=== PATIENT | male | born 1955 | race Caucasian/White ===

== ENCOUNTER 2021-03-10 09:15 | Outpatient (CLI) | payer MEDICARE, SELFPAY ==
--- NOTE | 2021-03-10 08:30 | DI.RAD_ITS ---
EXAM: XR KNEE RT 3V AP,LAT,TITO CLINICAL HISTORY: R knee pain. TECHNIQUE: 2D digital imaging was performed. COMPARISON: No exams were available for comparison FINDINGS: There are marked degenerative changes of the right knee. The findings are characterized by joint spa ce narrowing subchondral sclerosis and periarticular spurring. The findings are most marked in the p atellofemoral joint. No acute fracture or dislocation is seen. The bones are normally mineralized. There is an enthesophyte at the superior patella. There is a joint effusion. Vascular calcificatio ns are present. IMPRESSION: 1. No acute abnormality. 2. Marked osteoarthritis of the right knee. DATA REPOSITORY: RADIATION DOSE DELIVERED:
== END 2021-03-10 09:16 | disposition home or self-care (01) ==
LOC: DIORS 09:16
PROVIDERS: PCP Family Medicine; Referring Provider Family Medicine; Visit Provider Student in an Organized Health Care Education/Training Program
DX: M25.561 Pain in right knee (principal); M17.11 Unilateral primary osteoarthritis, right knee
CPT/HCPCS: 20610; 73562; J1040

== ENCOUNTER 2021-04-06 15:39 | Outpatient (REF) | payer MEDICARE, SELFPAY ==
[2021-04-06 16:44] LABS: Creatinine,Urine 87.15 mg/dL; Sodium, Urine 51 mmol/L
[2021-04-06 16:51] LABS: Creatinine,24hr Ur 2.09 g/24hr (0.95-2.49); Total Volume 2400 ml
[2021-04-06 16:52] LABS: CLEAVED CELLS 122 mmol/24h (40-220); Total Volume 2400 ml
[2021-04-07 08:57] LABS: Calcium Urine 24 hr 216 mg/24hrs (100-300); Timed Urine Volume 2400 mL; Uric Acid Urine 24.2 mg/dL (See Note); Uric Acid Urine 24hr 581 mg/24hrs (250-750)
[2021-04-07 08:59] LABS: Phosphorus Urine 24hr 0.8 g/24hrs (0.4-1.3); Timed Urine Volume 2400 mL
[2021-04-07 09:01] LABS: Magnesium 24hr Urine 160.8 mg/24hrs (12.0-192.0); Magnesium Random Urine 6.7 mg/dL (See Note); Timed Urine Volume 2400 mL
[2021-04-07 17:57] LABS: Citrate Excretion, 24hr, U 847 mg/24 h; Urine Volume 2400 mL
[2021-04-08 14:18] LABS: Oxalate, U 0.48 mmol/24 h (0.11-0.46); Oxalate, U 42.2 mg/24 h (9.7 - 40.5); Urine Volume 2400 mL
== END 2021-04-06 15:40 | disposition home or self-care (01) ==
LOC: LBN 15:39
PROVIDERS: PCP Family Medicine; Visit Provider Urology
DX: N20.0 Calculus of kidney (principal)
CPT/HCPCS: 82507; 83735; 81050; 82340; 82570; 83945; 84105; 84300; 84560

== ENCOUNTER 2021-07-20 03:04 | Outpatient (CLI) | payer MEDICARE, SELFPAY ==
[2021-07-20 12:43] LABS: HCT 41.8 % (40.0-50.0); HGB 13.8 g/dL (13.5-17.5); MCH 31.3 pg (27.0-33.0); MCV 94.8 fL (80-95); MPV 8.8 fL (8.0-11.0); Platelet Count 332 10^3/uL (130-400); RBC 4.41 10^6/uL (4.36-5.78); RDW 13.2 % (11.8-14.1); RDW-SD 46.5 fL; WBC 12.86 10^3/uL (4.4-10.8)
[2021-07-20 13:02] LABS: PTT Activated 23.9 sec (21.0-27.5); Prothrombin Time 9.9 sec (9.3-11.0)
== END 2021-07-20 03:05 | disposition home or self-care (01) ==
PROVIDERS: PCP Family Medicine; Visit Provider Urology
DX: D69.8 Other specified hemorrhagic conditions (principal)
CPT/HCPCS: 36415; 85027; 85576; 85610; 85730

== ENCOUNTER 2021-07-25 10:21 | Outpatient (CLI) | payer MEDICARE, SELFPAY ==
[2021-07-25 16:22] LABS: Platelet Function Analysis 98 secs (94-193)
== END 2021-07-25 10:22 | disposition home or self-care (01) ==
LOC: LBO 10:22
PROVIDERS: PCP Family Medicine; Visit Provider Urology
CPT/HCPCS: 85027; 85576; 85610; 85730

== ENCOUNTER 2021-09-06 11:34 | Outpatient (CLI) | payer MEDICARE, SELFPAY ==
--- NOTE | 2021-09-06 10:45 | DI.RAD_ITS ---
Exam(s) XR KNEE RT 1V XR STANDING ALIGNMENT EXAM: XR STANDING ALIGNMENT and XR knee RT 1 V CLINICAL HISTORY: RIGHT KNEE OA. TECHNIQUE: 2D digital imaging was performed. Five views were obtained. COMPARISON: CR XR KNEE RT 3V AP,LAT,TITO from 03/10/2021 CR XR KNEE RT 1V from 09/06/2021 CR XR KNEE RT 1V from 09/06/2021 FINDINGS: In the left knee there are marked degenerative changes present. There is bone on bone in the medial femoral tibial joint space. Periarticular spurring is seen both medially and laterally. In the righ t knee there are marked degenerative changes present. There is marked narrowing of the medial femora l tibial joint and the patellofemoral joint with [id number]. Periarticular spurring is seen involv ing all 3 joint compartments. There is an enthesophyte at the superior right patella. No right join t effusion is seen. The right lower extremity measures 93.8 cm. The left lower extremity measures 9 3.4 cm. SOFT TISSUE: Atherosclerosis. IMPRESSION: Severe bilateral knee osteoarthritis. DATA REPOSITORY: RADIATION DOSE DELIVERED:
== END 2021-09-06 11:35 | disposition home or self-care (01) ==
LOC: DIORS 11:34
PROVIDERS: PCP Family Medicine; Referring Provider Family Medicine; Visit Provider Physician Assistant
DX: M17.11 Unilateral primary osteoarthritis, right knee (principal); Z01.818 Encounter for other preprocedural examination
CPT/HCPCS: 73560; 77073

== ENCOUNTER 2021-09-11 02:00 | Outpatient (CLI) | payer MEDICARE, SELFPAY ==
[2021-09-11 09:55] LABS: HCT 44.6 % (40.0-50.0); HGB 14.3 g/dL (13.5-17.5); MCHC 32.1 % (32.0-36.0); MCV 93.5 fL (80-95); MPV 9.5 fL (8.0-11.0); Platelet Count 325 10^3/uL (130-400); RBC 4.77 10^6/uL (4.36-5.78); RDW-SD 48.7 fL; WBC 8.61 10^3/uL (4.4-10.8)
[2021-09-11 12:36] LABS: Source Nasal/Nares
[2021-09-11 13:59] LABS: Anion Gap 11.9 mmol/L (3-11); BUN 16 mg/dL (7-18); CO2 25.1 mmol/L (21.0-32.0); CREATININE 1.2 mg/dL (0.70-1.30); Chloride 108 mmol/L (98-107); Glucose 140 mg/dL (74-106); Potassium 4.1 mmol/L (3.5-5.1); Sodium 145 mmol/L (136-145)
[2021-09-11 18:06] LABS: COVID-19 PCR Negative (Negative)
== END 2021-09-11 02:01 | disposition home or self-care (01) ==
LOC: LBO 02:00
PROVIDERS: PCP Family Medicine; Visit Provider Student in an Organized Health Care Education/Training Program
DX: M25.561 Pain in right knee (principal); M17.11 Unilateral primary osteoarthritis, right knee; Z20.822 Contact with and (suspected) exposure to COVID-19; Z01.818 Encounter for other preprocedural examination; Z01.812 Encounter for preprocedural laboratory examination
CPT/HCPCS: 36415; 80048; 85027; 87635

== ENCOUNTER 2021-09-12 05:53 | Day surgery (SDC) | payer MEDICARE, SELFPAY ==
--- NOTE | 2021-09-11 14:07 | W.ANESPRE ---
General Info Date of Service Date Performed: 09/12/21 Height: 5 ft 10 in Weight: 117.934 kg Body Mass Index (BMI): 37.3 Surgical Procedure: Operation Date: 09/12/21 07:40 Proposed Procedures Side Surgeon p Knee Total Arthroplasty Right Esau Dong MD Meds Allergies and Home Medications Allergies Allergy/AdvReac Type Severity Reaction Status Date / Time Penicillins Allergy Verified 09/12/21 06:09 amoxicillin AdvReac Verified 09/12/21 06:09 Home Medication Medication Instructions Recorded amlodipine 10 mg tablet 10 mg PO DAILY 03/07/21 ascorbic acid (vitamin C) 1,000 mg 1 g PO DAILY tab 03/07/21 tablet aspirin 81 mg tablet,delayed 81 mg PO DAILY 03/07/21 release lisinopril 40 mg tablet 40 mg PO DAILY 03/07/21 metoprolol tartrate 25 mg tablet 12.5 mg PO BID 03/07/21 omega 3-pbo-pkk-fish oil 1,200 mg 1 cap PO DAILY 03/07/21 (144 mg-216 mg) capsule alfuzosin 10 mg tablet,extended 10 mg PO HS 09/06/21 release 24 hr diphenhydramine HCl 25 mg capsule 25 mg PO QHS 09/06/21 finasteride 5 mg tablet 5 mg PO DAILY 09/06/21 Current Visit Medications: Current Medications Generic Name Dose Route Start Last Admin Trade Name Freq PRN Reason Stop Dose Admin Acetaminophen 1,000 mg 09/12/21 06:00 Acetaminophen 500 Mg Tab PO 09/12/21 23:59 PREOP NEGRITA Celecoxib 400 mg 09/12/21 06:00 Celecoxib 200 Mg Cap PO 09/12/21 23:59 PREOP NEGRITA Gabapentin 300 mg 09/12/21 06:00 Gabapentin 300 Mg Cap PO 09/12/21 23:59 PREOP NEGRITA Tranexamic Acid 1,000 mg/ 60 mls @ 360 mls/hr 09/12/21 06:00 Sodium Chloride IVPB 09/12/21 23:59 PREOP NGERITA Tranexamic Acid 1,000 mg/ 60 mls @ 360 mls/hr 09/12/21 06:00 Sodium Chloride IVPB 09/12/21 23:59 DIRECTED NEGRITA Ringer's Solution 1,000 mls @ 80 mls/hr 09/12/21 06:00 IV 10/11/21 23:59 INFUSION NEGRITA Cefazolin Sodium 3,000 mg/ 100 mls @ 200 mls/hr 09/12/21 06:00 Sodium Chloride IVPB 09/12/21 23:59 PREOP NEGRITA IV Miscellaneous Supplies 1 each 09/12/21 06:00 Iv Access IV 10/11/21 23:59 DIRECTED NEGRITA Sodium Chloride 0 ml 09/12/21 06:00 Normal Saline Flush 10 Ml Syr IV 10/11/21 23:59 PRN PRN Sodium Chloride 0 ml 09/12/21 06:00 Normal Saline 10 Ml Vial IJ 10/11/21 23:59 DIRECTED PRN Sterile Water 0 ml 09/12/21 06:00 Water,Injection,Sterile 10 Ml Vial IJ 10/11/21 23:59 DIRECTED PRN PFSH Active Problems Active Problems: Problem Status Onset Code Primary osteoarthritis of right knee M17.11 BPH loc w urin obs/LUTS N40.1 HELENA (obstructive sleep apnea) G47.33 Enlarged prostate N40.0 Hypertension I10 Medical History Medical History BPH loc w urin obs/LUTS Enlarged prostate Hypertension HELENA (obstructive sleep apnea) PONV (postoperative nausea and vomiting) pt. states he does well with a scopolamie patch Surgical History Surgical History History of exploratory laparotomy Hydrocele Rupture of right distal biceps tendon Status post arthroscopy of left knee Status post left inguinal hernia repair Tobacco Smoking/Tobacco Use Status: Former Tobacco Use Alcohol Alcohol Intake: former Year quit: 1991 Substance Use Substance use: Never Substance use type: does not use Vital Signs and Lab Results Vital Signs Most Recent Vital Signs in EMR: Temp Pulse Resp BP Pulse Ox 36.8 C 66 16 144/77 H 97 09/12/21 06:13 09/12/21 06:13 09/12/21 06:13 09/12/21 06:13 09/12/21 06:13 Lab Results Blood Type / Crossmatch: No Data to Display Complete Blood Count: White Blood Count 8.61 10^3/uL (4.4-10.8) 09/11/21 09:32 09/11/21 Red Blood Count 4.77 10^6/uL (4.36-5.78) 09/11/21 09:32 09/11/21 Hemoglobin 14.3 g/dL (13.5-17.5) 09/11/21 09:32 09/11/21 Hematocrit 44.6 % (40.0-50.0) 09/11/21 09:32 09/11/21 Platelet Count 325 10^3/uL (130-400) 09/11/21 09:32 09/11/21 Complete Metabolic Panel: Sodium Level 145 mmol/L (136-145) 09/11/21 09:32 09/11/21 Potassium Level 4.1 mmol/L (3.5-5.1) 09/11/21 09:09/11/21 Chloride Level 108 mmol/L (98-107) H 09/11/21 09:32 09/11/21 Carbon Dioxide Level 25.1 mmol/L (21.0-32.0) 09/11/21 09:32 09/11/21 Blood Urea Nitrogen 16 mg/dL (7-18) 09/11/21 09:32 09/11/21 Creatinine 1.2 mg/dL (0.70-1.30) 09/11/21 09:32 09/11/21 Estimated GFR/1.73 m2 >= 60.00 (mL/min/1.73m2) 09/11/21 09:32 09/11/21 Calcium Level 9.0 mg/dL (8.5-10.1) 09/11/21 09:32 09/11/21 Glucose Level 140 mg/dL (74-106) H 09/11/21 09:32 09/11/21 Liver Function Panel: No Data to Display Coagulation Panel: No Data to Display Cardiac Panel: No Data to Display Arterial Blood Gas: No Data to Display Venous Blood Gas: No Data to Display Pancreas Panel: No Data to Display Thyroid Panel: No Data to Display Infectious Disease: Coronavirus (COVID-19)(PCR) Negative (Negative) 09/11/21 09:50 09/11/21 Coronavirus 2019 Source Nasal/Nares 09/11/21 09:50 09/11/21 Blood Cultures: No Data to Display Toxicology Panel: No Data to Display Anesthesia Assessment and Plan Anesthesia History Personal History: PONV Family History: No Family History of Anesthesia Complications Exercise Tolerance Exercise Tolerance: Metabolic Equivalents>4 Pertinent Negatives Pertinent Negatives: No Symptoms of GERD, No Major Cardiovascular Symptoms or Complaints, No Major Pulmonary Symptoms or Complaints and No History of CVA/TIA Cardiac & Pulmonary Exam Cardiac Exam: Normal S1/S2 Heart Sounds Pulmonary Exam: Clear Bilateral Breath Sounds Airway Exam Known Difficult Airway: No Mallampati Class: 3 Mouth Opening: Normal (> 3cm) Thyromental Distance: Greater than 3 cm Neck Range of Motion: Full ROM Neck Circumference: Thick Teeth Condition: Normal Dentition ASA Classification ASA Score: ASA 3 Emergency Case?: No NPO Status NPO Status: NPO Clears >2 hours, Solids >8 hours Anesthesia Plan Resuscitation Status: Full Code Anesthesia Technique: Spinal Anesthesia Airway Planned: Natural Airway Pain Management: Surgeon and patient request nerve block Monitors Used: Standard Monitors Preoperative Comments:: 65 yo male for right TKA. Sig PMHx: HTN (amlodipine, lisinopril, metoprolol), BPH (alfuzosin), right radial artery occlusion, PONV. Plan: spinal, ACB, +/-scopolamine.
[2021-09-12] VITALS (9 sets, daily range): BP systolic 107–144; BP diastolic 52–77; PULSE 50–66; RESP 15–16; TEMP 36.3–36.8; O2SAT 94–97; BMI 37.3
[2021-09-12] MEDS: Acetaminophen 500 MG TAB 1000 MG PO (06:40)
[2021-09-12] MEDS: Gabapentin 300 MG CAP PO (06:42)
[2021-09-12] MEDS: Celecoxib 200 MG CAP 400 MG PO (06:42)
[2021-09-12] MEDS: Lactated Ringers 1,000 ML 80 ML IV (06:50)
--- NOTE | 2021-09-12 07:02 | W.ANESNERVE ---
Nerve Block Single Injection Procedure Date and Time Date Performed: 09/12/21 Procedure Start: 07:15 Location Where Procedure Performed Procedure Location: PACU Reason Performed: Postoperative Analgesia Requesting Provider: Esau Dong Timeout Performed Timeout Performed: No Monitoring Used ECG, Blood Pressure and SpO2 Sterility Sterility: Hand Hygiene, Surgical Cap, Surgical Mask and Chlorhexidine Sedation Given During Procedure Sedation Given (Indicate Dose Given): Versed IV Dose:: 2 mg Patient Mental Status Patient Mental Status: Sedate with meaningful communication Nerve Block 1st Nerve Block: Laterality: Right Block Type: Adductor Canal Needle / Catheter Used: 100mm SonoPlex II Local Anesthetic Bolus (Indicate Dose Given): Lidocaine used for local infiltration of skin, Injected in 3-5ml increments after negative blood aspiration and Bupivacaine 0.375% Dose:: 10 ml Additives (Indicate Dose Given): None Ultrasound: Sterile probe cover and gel used Ultrasound Image Saved?: Yes Nerve Stimulator: Not Used Paresthesia: None Procedure Tolerated: No Complications Procedure Outcome: Successful Performed By: Jarrell Lazo Supervised By: Ed Sanches
--- NOTE | 2021-09-12 07:17 | W.PM.DSUDISC ---
Discharge Plan Disposition Patient Disposition: HOME Condition: Good Discharge Details Reason For Visit: Right Knee Arthritis Attending Provider: Esau Dong Primary Care Provider: Gagandeep Demarco Home Meds and New Rx's Prescriptions: New acetaminophen 500 mg tablet 1,000 mg PO Q8H PRN (Reason: pain) Qty: 90 RF: 3 celecoxib 200 mg capsule 200 mg PO BID PRN (Reason: pain) Qty: 60 RF: 1 docusate sodium [Colace] 100 mg capsule 100 mg PO BID PRNQty: 10 RF: 0 pantoprazole 40 mg tablet,delayed release (DR/EC) 40 mg PO DAILY Qty: 30 RF: 0 oxycodone 5 mg tablet 5 - 10 mg PO Q4H PRN (Reason: Pain, Severe) Qty: 18 RF: 0 Continued ascorbic acid (vitamin C) 1,000 mg tablet 1 g PO DAILY RF: 0 omega 6-uhv-vpq-fish oil [Fish Oil] 1,200 (144-216) mg capsule 1 cap PO DAILY RF: 0 amlodipine 10 mg tablet 10 mg PO DAILY RF: 0 lisinopril 40 mg tablet 40 mg PO DAILY RF: 0 metoprolol tartrate 25 mg tablet 12.5 mg PO BID RF: 0 finasteride 5 mg tablet 5 mg PO DAILY RF: 0 diphenhydramine HCl [Benadryl] 25 mg capsule 25 mg PO QHS RF: 0 alfuzosin 10 mg tablet extended release 24 hr 10 mg PO HS RF: 0 Changed aspirin [Adult Aspirin Regimen] 81 mg tablet,delayed release (DR/EC) 81 mg PO BID Qty: 60 RF: 0 Discharge Instructions Additional Instructions: Total Knee Discharge Instructions Activity: The most important activity is to walk. You should try to take short walks a few times a day. It is important that when resting you work on keeping the knee straight. Avoid putting a pillow behind the knee as this will encourage flexion. Work on range of motion exercises as provided by Physical Therapy. If you have the [employer] bike coming, this will be your primary tool for exercise after the knee replacement. You should use it and follow the directions for the knee. Utilize the other exercises sparingly based on your symptoms. - Start outpatient physical therapy around 2 weeks. - You should wear the MAO hose on both legs for 2 weeks. You may remove these at night. You may also use any compression sock in place of the MAO hose. If the MAO hose become too difficult to get on/off then you may discontinue them. - Utilize [employer] to review exercises, see videos on exercises and obtain basic information pertaining to your surgery and your recovery. Dressing: Remove the Spike wrap by 2 days after your surgery and put on the MAO stocking given to you from the hospital. Keep the surgical dressing (underneath the SPIKE wrap) in place for at least one week. After the first week it may be removed and replaced with light gauze and tape or nothing or you may leave it until your follow-up appointment. The wound and dressing may get wet after 3 days but avoid soaking the dressing or otherwise it will need to be changed. Many people prefer covering the dressing with cling wrap (saran wrap) to minimize it from getting soaked. If it gets wet, just pat dry. If it starts to peel off then it will need to be changed. Medications: - You should take Tylenol and anti-inflammatory Celebrex as your primary pain control medications. If the Celebrex is too expensive or not covered, please call the office for another alternative (Advil/Ibuprofen or Naproxen/Aleve) - You have been prescribed a stronger pain medication Oxycodone for breakthrough pain, take as needed as prescribed. - You have also been prescribed a stomach acid reduction agent Pantoprozole to help reduce stomach acid and reflux. - You will be taking Aspirin 81mg twice a day for DVT prevention unless instructed otherwise. - If you have constipation you should take Colace or Miralax (both [id number]). It takes most people 3-4 days to have a bowel movement. Follow-up: 2 weeks If you have any acute concerns or questions, please do not hesitate to contact the office at [phone]. You may contact Dr. Dong with any questions after hours through the hospital at [phone] or on his cell phone at [phone]. Referrals: Esau Dong MD [ [facility] STAFF PHYSICIAN] - Equipment/Supplies: Walker Activity:: Elevate Remove Dressings/Wound Care:: Do Not Remove Shower/Bathe:: 72 hours Diet:: As Tolerated Discharge Orders Discharge Orders: Discharge Order (Routine); Ordered 09/12/21 Ordered By: Esau Dong DS: Diagnosis Discharge Diagnosis (1) Primary osteoarthritis of right knee: Status: Chronic
[2021-09-12] MEDS: ceFAZolin 3,000 MG in Normal Saline 100 ML 200 MG IVPB (07:58)
[2021-09-12] MEDS: Bupivacaine 0.25% Pres-Free 30 ML VIAL (08:29)
[2021-09-12] MEDS: Ketorolac 30 MG/ML VIAL (08:29)
[2021-09-12] MEDS: Normal Saline 20 ML VIAL (08:30)
--- NOTE | 2021-09-12 09:28 | W.PM.OP ---
Date of service: 09/12/21 Time of Service: 09:28 Operative Note Operative Note DATE OF PROCEDURE: 09/12/21 PRE-OP DIAGNOSIS: Right Knee Osteoarthritis POST-OP DIAGNOSIS: same PROCEDURE: Right Total Knee Replacement SURGEON: Esau Dong BRAND DEVELOPMENT MANAGER: Apoorva Burt ANESTHESIA TYPE: Spinal Refer to Anesthesia Record ESTIMATED BLOOD LOSS: 250 PATHOLOGY: none sent TOURNIQUET TIME: 0 COMPLICATIONS: None Patient was transported to: PACU Patient's condition: stable Implants: 1. Depuy Attune Cementless Cruciate Retaining Femoral Component, Size 8 2. Depuy Attune Cementless Rotating Platform Tibial Component, Size 7 3. Depuy Attune 8x8 CR/RP Poly 4. Depuy Attune Patellar Component, Size 41 Indications: I have seen George in clinic for symptoms of knee arthritis, confirmed with radiographic findings. He has exhausted nonoperative methods and was having significant limitations in daily function and desired better function and less pain. I discussed the technical details of a knee replacement. I explained the risks of the procedure to include, but not limited to, bleeding, infection, pain, stiffness, fracture, damage to nerves and vessels, damage to muscles and tendons, loosening, need for repeat procedure, blood clot and cardiopulmonary demise. Despite these risks, George elected to proceed. Findings: There was significant signs of arthritis throughout the knee involving all 3 compartments and multiple loose bodies. Procedure Description: George was greeted in the preoperative holding area where the correct side was identified and marked. The consent was reviewed with the patient and signed. The history and physical was updated. All questions were answered. Preoperative medications were administered: Acetaminophen 1000mg, Celebrex 400mg, and Gabapentin 300mg. An adductor canal block was then administered by the anesthesia team in the PACU. George was taken back to the operating room. A spinal anesthestic was then administered. The patient was placed into the supine position on the operating room table. A nonsterile tourniquet was placed high onto the leg but only used for cementing. Posts were placed for positioning during the procedure. All bony prominences were well padded. Prophylactic antibiotics in the form of Cefazolin were administered. 1g of Tranxemic Acid was given intravenously within 30 minutes of incision. The right leg was then prepped with Chloraprep and draped in a standard fashion with impervious stockinette. A second prep with Chloraprep was performed prior to application of Iodine impregnated skin protection. A timeout to confirm correct identity, side and site, procedure, allergies, anesthesia, and medical concerns was performed. With the knee in some flexion, a midline incision was made overlying the knee. Full thickness skin flaps were raised once the extensor mechanism was encountered. These were raised medially and laterally. Any bleeding was controlled with electrocautery. Once the extensor mechanism was fully exposed, a medial parapatellar arthrotomy was performed in a flexed position. All bleeding from the arthrotomy and the geniculate arteries was coagulated. A medial subperiosteal peel was performed with electrocautery to the midcoronal plane. Due to the significant varus deformity the entire medial tibial plateau was exposed. The fat pad was removed while keeping the patellar tendon protected. The anterior distal femur synovium was removed for later visualization. The ACL and PCL were resected and the anterior horn of the lateral meniscus was transected. The knee was then flexed with the patella everted. Large osteophytes from the tibia were removed. Large osteophytes from the femur were removed. There were multiple loose bodies removed. Using a step drill, and based on preoperative templating, the femoral canal was entered. This was done with a step drill without any difficulty. The intramedullary distal femoral cut guide was inserted, set to a 4 degree valgus cut and 10mm cut thickness. The distal femoral cut guide was then held in position and pinned. With the soft tissues protected, the distal cut was performed. This was passed over a few times to ensure a planar cut. I then turned attention to the tibia. The extramedullary guide was placed onto the leg. The distal aspect was slid medial to adjust for position of center of ankle and stay in line with shaft of the tibia. Approximately 3-5 degrees of posterior slope was kept in the proximal cutting guide. The center of the guide was aligned with the PCL. The stylus was used to assess cut thickness. The medial side, most involved side, was set for a 4mm cut. This was then held in position and pinned into place with 2 additional pins and a cross pin for stability. The medial and lateral collateral ligaments were protected and the cut was performed. With this completed, it was assessed and noted to be of appropriate dimensions. The guide was removed. A spacer block was inserted and the knee was brought into extension. The 7mm spacer block provided full extension, without hyperextension and with stability of both the medial and lateral collateral ligaments was assessed. The pins from the femur and the tibia were then removed. The distal femur was then sized. The anterior stylus was placed onto the lateral ridge of the anterior femur. This indicated a size 8 femur. The external rotation of the guide was adjusted to 7 degrees to match the epicondylar axis, perpendicular to [place]?s line. The 4-in-1 cutting guide was the placed. The posterior medial femur cut was evaluated and appeared of good thickness. The spacer block was inserted underneath the cutting guide and stability was confirmed in 90 degrees of flexion. An khoa wing was used to confirm appropriate position of the anterior cut to avoid notching. This cutting guide was ensured to be flush on the cut surface and then pinned into place with headed pins. While protecting the soft tissues, quad tendon, and collateral ligaments, the anterior and posterior cuts were performed with a saw. The central two pins were removed and the posterior and anterior chamfers were cut next. The notch-cutting guide was placed. This was pinned to lateralize the femoral component as much as possible while keeping it flush on the cut surface. This was then pinned into position. A reciprocating saw was used to make the notch cut. A rasp smoothed the cut surfaces. The medial and lateral menisci were removed. A trial femoral component was then inserted, impacted down to the cut surfaces, and the lug holes were drilled. A provisional trial tibial component was placed and the knee was brought through range of motion. The polyethylene was trialed until there was good flexion and extension with excellent stability to the medial and lateral collaterals. The patella was tracking without thumbs. A size 8mm polyethylene component provided the best range of motion and stability with less than 2mm gapping with medial and lateral stress and full extension without significant hyperextension. The tibial cut surface was fully exposed. The tibia was then sized as a 7. The tibia had been previously marked during trialing to correspond to the center of the tibial component to help with rotation. The trial was aligned to this nasir, approximately rotated to the medial 1/3rd of the tibial tubercle. The trial was pinned into place. The tibia was prepared with a reamer and a keel punch and lug holes. The knee was then brought into extension and the patella was measured as 27mm. Using the patellar clamp and cut guide, this was resected to a flat surface with at least 13mm of thickness remaining. The size 41 patella fit the best. This was oriented and then clamped into position. The lugs were drilled. The trial components were removed. The final components were opened on the back table. The periosteal and capsular tissues, especially posteriorly, around the knee were then systematically injected with a periarticular cocktail consisting of 50cc 0.25% Marcaine, 30mg Ketorolac, 20cc of Exparal and 50cc of injectable saline. The knee was thoroughly irrigated with a pulse lavage and dried. Irrisept was also used to irrigate the tissues. On the back table, with the implants opened, the cement was mixed. One batch of high viscosity cement was prepared with vacuum assistance. After the cement was ready a small amount was placed on the cut surface of the patella and the patellar button was clamped into position and held. While the cement was hardening, the cementless knee components were placed. Starting with the tibial component, the tibia was subluxed anteriorly and the lug holes of the component were lined up. The tibia was then impacted with an impactor and mallet until the tibial component was in contact with the tibia. The final polyethylene component was inserted. Then, the femoral component was inserted. The lug holes were aligned and the component was impacted into position. The knee was irrigated with Irrisept chlorhexadine solution. This was allowed to sit in the knee for 3 minutes. After the cement had finally cured, approximately 15min, the clamp was removed from the patella and the knee was taken through range of motion. The patella was tracking with a no-thumbs technique. The capsule was then reapproximated with a No. 1 Vicryl at multiple locations. The capsule was finally closed with a No. 2 Stratafix, barbed suture. The second dosing of 1g TXA was started. Deep tissues were then reapproximated with 0 Vicryl and 2-0 Vicryl. The skin was closed with a running 3-0 Monocryl in a subcuticular fashion. This was reinforced with skin glue. A Mepilex silver dressing was applied along with a xntc-et-izeef JAY JAY wrap. A CryoCuff was applied. George was transferred to the hospital bed without difficulty an suffering no apparent complication. He has a good prognosis. Physical therapy will start today and without restrictions, weight-bearing as tolerated. Aspirin 81mg BID will be used for DVT prophylaxis.
--- NOTE | 2021-09-12 12:38 | IN_ITS ---
Date of service: 09/12/21 Time of Service: 12:38 PT Notes Visit Reasons: Right Knee Arthritis Physical Therapy Day Surgery Initial Evaluation Date: 09/12/2021 Referring Doctor: Esau Dong MD PT Orders: PT CONSULT: Status post Ortho surgery. Status post right TKA. Precautions: WBAT on right LE with AD. Patient Profile/Admitting Diagnosis: George is a 65-year-old male with primary osteoarthritis of the right knee and is status post right total knee arthroplasty on postoperative day 0. PMHX: Medical History (Updated 09/06/21 @ 10:40 by Dang Prakash RN) BPH loc w urin obs/LUTS Enlarged prostate Hypertension HELENA (obstructive sleep apnea) Surgical History (Updated 09/06/21 @ 10:21 by Apoorva Burt) History of exploratory laparotomy Hydrocele Rupture of right distal biceps tendon Status post arthroscopy of left knee Status post left inguinal hernia repair Social History/Home Situation: Lives with in a private home with a ramp to enter and a 1 step up onto entrance door. Has a flight of steps to the upstairs where his bathroom his has set up the need for so that he can manage well for the first few days. No falls in the past 12 months. Independent with all mobility ADL performance prior to surgery. Equipment Owned/DME: [facility] Subjective: Patient and state that although he has been able to move on his own, he has become increasingly slow and unsafe prior to surgery. Today, reports numbness in his bottom and R foot. States 1/10 pain in the front of thigh and knee. Denies chest pain, headache, and dizziness. Objective: General Observation: JAY JAY wraps to R knee. Cryocuff to R knee. TEDS on L leg. In NAD. Mental Status: Alert and oriented x4 Pain: 1/10 in the right thigh and knee ROM: Right Lower Extremity: Hip flexion WFL. Hip abduction WFL. Knee flexion WFL. Ankle dorsiflexion WFL. Ankle plantarflexion WFL. Left Lower Extremity: Hip flexion WFL. Hip abduction WFL. Knee flexion about 5 to 10 degrees. Knee extension -5 degrees. Ankle dorsiflexion WFL. Ankle plantarflexion WFL. Strength: Right Lower Extremity: Hip flexors 5/5. Hip abductors 5/5. Knee flexors 5/5. Knee extensors 5/5. Ankle dorsiflexors 5/5. Ankle plantarflexors 5/5. Left Lower Extremity:Hip flexors 5/5. Hip abductors 5/5. Knee flexors 3-/5. Knee extensors 3-/5. Ankle dorsiflexors 5/5. Ankle plantarflexors 5/5. Sensation: Numb in gluteal areas and dorsum of R foot. Bed Mobility/Transfers: Supine to sit supervision Sit to stand contact-guard assist Stand to sit standby assist Bed to chair standby assist Gait: Instructed patient on level surface ambulation 100 feet using front wheel walker with step through pattern requiring only standby assist. Denies chest pain, headache, and dizziness throughout activity. Wheelchair follow provided by LUCRECIA Mata. Good quad activation on the left. No LOB. No SOB. Stairs: Negotiated 6 x 4 inch steps and 4 x 6 inch steps while holding onto 1 rail using step to gait pattern requiring standby assist. Balance: Static Sitting: Normal Dynamic Sitting: Normal fair Static Standing: Dynamic Standing: Fair Special Tests: Mobility Limitations Standardized Measure [facility] AM-PAC 6 clicks Basic Mobility Inpatient Short Form: Raw Score: 24 CMS Score: 0% deficit Informed Consent/Education: Patient instructed in purpose of PT consult. Packet containing TKA exercise protocol has been given to patient. Education and training on initial set of exercises that can be done at home have been completed with patient. Assessment: George requires the use of a front wheel walker to maximize independence and reduce fall risk at home. Patient presents with clinical signs and symptoms consistent with current/admitting diagnoses that have resulted to mobility limitations, gait instability, generalized weakness, and impairment of motor control as demonstrated by the following impairment level findings: 1. Decreased strength to left knee major muscle groups 2. Impaired standing balance 3. Limitation of joint range of motion in left knee Impairments are contributing to the following functional limitations: 1. Inability to safely ambulate without assistive device 2. Increase completion time for mobility ADL performance 3. Increased fall risk Patient is assessed as a 09804 moderate complexity based on the following: History: 65-year-old male with impairment level findings, functional limitations, and past medical history as indicated above Examination: Demonstrable impairment in strength, balance, and mobility level with underlying impairments and functional limitations as documented above Presentation: Evolving Decision Makin moderate complexity Goals: N/A. PT evaluation and 1-2 treatment sessions only for functional mobility training using recommended AD and for HEP instruction. Plan of Care/Treatment Plan: N/A. PT evaluation and 1-2 treatment session only for functional mobility training using recommended AD and for HEP instruction. DISCHARGE RECOMMENDATIONS: Home when medically cleared by orthopedic surgeon. Outpatient PT services to facilitate return to premorbid independent level and to unassisted community ambulation. TREATMENT CODE/TIME: 32449 x 20 minutes, 17311 x 14 minutes beginning at 12:38 PM. Thank you for the opportunity to participate in the care of this patient. Emerita Donnelly PT, DPT, CLT [facility] [place], [place]
--- NOTE | 2021-09-12 13:28 | W.ANESPOSTOP ---
Postoperative Evaluation Date, Time and Location Date Performed: 09/12/21 Time Performed: 13:28 Patient Location: Day Surgery Unit Vital Signs Most Recent Imported Vital Signs: Most Recent Vital Signs Temp Pulse Resp BP Pulse Ox 36.5 C 57 L 16 134/74 95 09/12/21 12:00 09/12/21 12:00 09/12/21 12:00 09/12/21 12:00 09/12/21 12:00 Pain Score Most Recent Pain Score: Most Recent Pain Score Pain Level 0 09/12/21 12:00 Assessment Mental Status: Awake (Alert & Oriented to Patient Baseline) Airway and Respiratory Function: Patent airway with normal (patient baseline) respiratory exam Cardiovascular Function: Hemodynamically Stable Hydration Status: Adequately Hydrated Nausea & Vomiting: No Nausea or Vomiting Pain: Pt. Denies Any Pain Peripheral Nerve Block: Regional nerve block not resolved at time of post operative discharge
== END 2021-09-12 13:55 | disposition home or self-care (01) ==
PROVIDERS: PCP Family Medicine; Visit Provider Student in an Organized Health Care Education/Training Program
PROC: (CPT 27447; principal; 2021-09-12 07:30)
DX: M17.11 Unilateral primary osteoarthritis, right knee (principal); G89.18 Other acute postprocedural pain; G47.33 Obstructive sleep apnea (adult) (pediatric); I10 Essential (primary) hypertension
CPT/HCPCS: 27447; C1776; 97162; 97530; J0690; J1100; J1885; J2001; J2250; J2405

== ENCOUNTER 2021-09-25 13:47 | Outpatient (CLI) | payer MEDICARE, SELFPAY ==
--- NOTE | 2021-09-25 13:30 | DI.RAD_ITS ---
Exam(s) XR STANDING ALIGNMENT EXAM: XR STANDING ALIGNMENT CLINICAL HISTORY: 1ST POST OP R TKA. TECHNIQUE: 2D digital imaging was performed. COMPARISON: CR XR STANDING ALIGNMENT from 09/06/2021 FINDINGS: There has been interval placement of a right knee prosthesis appears to be in satisfactory position. Advanced degenerative narrowing of the medial compartment of the opposite-left knee is again noted. Hips appear unremarkable. Ankles unremarkable. IMPRESSION: DATA REPOSITORY: RADIATION DOSE DELIVERED:
--- NOTE | 2021-09-25 13:30 | DI.RAD_ITS ---
Exam(s) XR KNEE RT 1V EXAM: XR KNEE RT 1V CLINICAL HISTORY: 1ST POST OP R TKA. TECHNIQUE: 2D digital imaging was performed. COMPARISON: CR XR KNEE RT 1V from 09/06/2021 FINDINGS: Single lateral view reveals satisfactory position alignment of the components of recently placed pros thesis. No fracture evident but there does appear to be a joint effusion. IMPRESSION: DATA REPOSITORY: RADIATION DOSE DELIVERED:
== END 2021-09-25 13:48 | disposition home or self-care (01) ==
LOC: DIORS 13:47
PROVIDERS: PCP Family Medicine; Referring Provider Family Medicine; Visit Provider Student in an Organized Health Care Education/Training Program
DX: Z96.651 Presence of right artificial knee joint (principal); Z47.1 Aftercare following joint replacement surgery
CPT/HCPCS: 73560; 77073

== ENCOUNTER → 2021-10-23 13:57 | Outpatient (BNVA) | payer MEDICARE, SELFPAY | PROVIDERS: PCP Family Medicine; Referring Provider Family Medicine | DX: Z47.1 Aftercare following joint replacement surgery (principal); Z96.651 Presence of right artificial knee joint ==

== ENCOUNTER → 2021-12-04 13:47 | Outpatient (BNVA) | payer MEDICARE, SELFPAY | PROVIDERS: PCP Family Medicine; Referring Provider Family Medicine | DX: Z47.1 Aftercare following joint replacement surgery (principal); Z96.651 Presence of right artificial knee joint ==

== ENCOUNTER → 2022-01-03 10:26 | Outpatient (BNVA) | payer MEDICARE, SELFPAY | PROVIDERS: PCP Family Medicine; Referring Provider Family Medicine; Visit Provider Student in an Organized Health Care Education/Training Program | DX: Z47.1 Aftercare following joint replacement surgery (principal); Z01.818 Encounter for other preprocedural examination; M17.12 Unilateral primary osteoarthritis, left knee; Z20.822 Contact with and (suspected) exposure to COVID-19; Z96.651 Presence of right artificial knee joint ==

== ENCOUNTER 2022-01-19 03:58 | Outpatient (CLI) | payer MEDICARE, SELFPAY | END 2022-01-19 03:59 | disposition home or self-care (01) | LOC: LBO 03:58 | PROVIDERS: Urology; PCP Family Medicine; Visit Provider Family Medicine | DX: R97.20 Elevated prostate specific antigen [PSA] (principal) | CPT/HCPCS: 36415; 84154 ==

== ENCOUNTER → 2022-01-29 12:56 | Outpatient (BNVA) | payer MEDICARE, SELFPAY | PROVIDERS: PCP Family Medicine; Referring Provider Family Medicine | DX: M17.12 Unilateral primary osteoarthritis, left knee (principal) ==

== ENCOUNTER 2022-02-05 04:00 | Outpatient (CLI) | payer MEDICARE, SELFPAY ==
[2022-02-05 10:05] LABS: HCT 45.5 % (40.0-50.0); HGB 14.5 g/dL (13.5-17.5); MCH 30.1 pg (27.0-33.0); MCHC 31.9 % (32.0-36.0); MCV 94.4 fL (80-95); MPV 9.1 fL (8.0-11.0); Platelet Count 334 10^3/uL (130-400); RBC 4.82 10^6/uL (4.36-5.78); RDW 13.5 % (11.8-14.1); RDW-SD 47.2 fL; WBC 8.59 10^3/uL (4.4-10.8)
[2022-02-05 11:24] LABS: Anion Gap 8.5 mmol/L (3-11); BUN 19 mg/dL (7-18); CO2 30.5 mmol/L (21.0-32.0); CREATININE 1.4 mg/dL (0.70-1.30); Chloride 107 mmol/L (98-107); Estimated GFR 50.55 (mL/min/1.73m2); Glucose 153 mg/dL (74-106); Potassium 4.3 mmol/L (3.5-5.1); Sodium 146 mmol/L (136-145)
[2022-02-05 12:51] LABS: Source Nasal/Nares
[2022-02-05 16:04] LABS: COVID-19 PCR Negative (Negative)
== END 2022-02-05 04:01 | disposition home or self-care (01) ==
PROVIDERS: PCP Family Medicine; Visit Provider Student in an Organized Health Care Education/Training Program
DX: M17.12 Unilateral primary osteoarthritis, left knee (principal); Z01.818 Encounter for other preprocedural examination
CPT/HCPCS: 36415; 80048; 85027; 87635; U0005

== ENCOUNTER 2022-02-05 04:18 | Outpatient (CLI) | payer MEDICARE, SELFPAY | END 2022-02-05 04:19 | disposition home or self-care (01) | LOC: LBO 04:18 | PROVIDERS: PCP Family Medicine; Visit Provider Student in an Organized Health Care Education/Training Program ==

== ENCOUNTER 2022-02-07 07:38 | Day surgery (SDC) | payer MEDICARE, SELFPAY ==
--- NOTE | 2022-02-06 15:05 | W.ANESPRE ---
General Info Date of Service Date Performed: 02/07/22 Height: 5 ft 10 in Weight: 118.841 kg Body Mass Index (BMI): 37.5 Surgical Procedure: Operation Date: 02/07/22 10:10 Proposed Procedure Side Surgeon p Knee Total Arthroplasty Cementless CR Left Esau Dong MD Meds Allergies and Home Medications Allergies Allergy/AdvReac Type Severity Reaction Status Date / Time amoxicillin Allergy reports Verified 02/07/22 07:51 redness and itching Penicillins Allergy reports Verified 02/07/22 07:51 redness and itching Home Medication Medication Instructions Recorded amlodipine 10 mg tablet 10 mg PO DAILY 03/07/21 ascorbic acid (vitamin C) 1,000 mg 1 g PO DAILY tab 03/07/21 tablet lisinopril 40 mg tablet 40 mg PO DAILY 03/07/21 metoprolol tartrate 25 mg tablet 12.5 mg PO BID 03/07/21 omega 5-ads-jfn-fish oil 1,200 mg 1 cap PO DAILY 03/07/21 (144 mg-216 mg) capsule (Fish Oil) alfuzosin 10 mg tablet,extended 10 mg PO HS 09/06/21 release 24 hr diphenhydramine HCl 25 mg capsule 25 mg PO QHS 09/06/21 (Benadryl) finasteride 5 mg tablet 5 mg PO DAILY 09/06/21 hydrochlorothiazide 12.5 mg tablet 12.5 mg PO DAILY 09/25/21 acetaminophen 500 mg tablet 1,000 mg PO Q8H PRN #90 tab 02/07/22 aspirin 81 mg tablet 81 mg PO DAILY 02/07/22 aspirin 81 mg tablet,delayed 81 mg PO BID 30 Days #60 tab 02/07/22 release celecoxib 200 mg capsule (Celebrex) 200 mg PO BID #30 cap 02/07/22 docusate sodium 100 mg capsule 100 mg PO BID #30 cap 02/07/22 (Colace) gabapentin 300 mg capsule 300 mg PO QHS #14 cap 02/07/22 oxycodone 5 mg tablet 5 mg PO Q4H PRN #18 tab 02/07/22 pantoprazole 40 mg tablet,delayed 40 mg PO DAILY 30 Days #30 tab 02/07/22 release Current Visit Medications: Current Medications Generic Name Dose Route Start Last Admin Trade Name Freq PRN Reason Stop Dose Admin Acetaminophen 1,000 mg 02/07/22 06:00 Acetaminophen 500 Mg Tab PO PREOP NEGRITA Celecoxib 400 mg 02/07/22 06:00 Celecoxib 200 Mg Cap PO PREOP NEGRITA Gabapentin 300 mg 02/07/22 06:00 Gabapentin 300 Mg Cap PO PREOP NEGRITA Tranexamic Acid 1,000 mg/ 60 mls @ 360 mls/hr 02/07/22 06:00 Sodium Chloride IVPB PREOP NEGRITA Tranexamic Acid 1,000 mg/ 60 mls @ 360 mls/hr 02/07/22 06:00 Sodium Chloride IVPB DIRECTED NEGRITA Ringer's Solution 1,000 mls @ 80 mls/hr 02/07/22 06:00 IV 03/01/22 23:59 INFUSION NEGRITA Cefazolin Sodium 3,000 mg/ 100 mls @ 200 mls/hr 02/07/22 06:00 Sodium Chloride IVPB 02/07/22 16:00 PREOP NEGRITA IV Miscellaneous Supplies 1 each 02/07/22 06:00 Iv Access IV 03/01/22 23:59 DIRECTED NEGRITA Sodium Chloride 0 ml 02/07/22 06:00 Normal Saline Flush 10 Ml Syr IV 03/01/22 23:59 PRN PRN Sodium Chloride 0 ml 02/07/22 06:00 Normal Saline 10 Ml Vial IJ 03/01/22 23:59 DIRECTED PRN Sterile Water 0 ml 02/07/22 06:00 Water,Injection,Sterile 10 Ml Vial IJ 03/01/22 23:59 DIRECTED PRN PFSH Active Problems Active Problems: Problem Status Onset Code Left knee DJD M17.12 BPH loc w urin obs/LUTS N40.1 HELENA (obstructive sleep apnea) G47.33 Enlarged prostate N40.0 Hypertension I10 Medical History Medical History Kidney stones PONV (postoperative nausea and vomiting) pt. states he does well with a scopolamie patch Surgical History Surgical History History of exploratory laparotomy History of total right knee replacement (09/12/21) Hydrocele Rupture of right distal biceps tendon Status post arthroscopy of left knee x2 Repaired MCL Status post left inguinal hernia repair Umbilical hernia Tobacco Smoking/Tobacco Use Status: Former Tobacco Use Alcohol Alcohol Intake: former Year quit: 1991 Substance Use Substance use: Never Substance use type: does not use Vital Signs and Lab Results Vital Signs Most Recent Vital Signs in EMR: Temp Pulse Resp BP Pulse Ox 36.7 C 68 16 153/75 H 97 02/07/22 07:48 02/07/22 07:48 02/07/22 07:48 02/07/22 07:48 02/07/22 07:48 Lab Results Blood Type / Crossmatch: No Data to Display Complete Blood Count: White Blood Count 8.59 10^3/uL (4.4-10.8) 02/05/22 09:55 02/05/22 Red Blood Count 4.82 10^6/uL (4.36-5.78) 02/05/22 09:55 02/05/22 Hemoglobin 14.5 g/dL (13.5-17.5) 02/05/22 09:55 02/05/22 Hematocrit 45.5 % (40.0-50.0) 02/05/22 09:55 02/05/22 Platelet Count 334 10^3/uL (130-400) 02/05/22 09:55 02/05/22 Complete Metabolic Panel: Sodium Level 146 mmol/L (136-145) H 02/05/22 09:55 02/05/22 Potassium Level 4.3 mmol/L (3.5-5.1) 02/05/22 09:55 02/05/22 Chloride Level 107 mmol/L (98-107) 02/05/22 09:55 02/05/22 Carbon Dioxide Level 30.5 mmol/L (21.0-32.0) 02/05/22 09:55 02/05/22 Blood Urea Nitrogen 19 mg/dL (7-18) H 02/05/22 09:55 02/05/22 Creatinine 1.4 mg/dL (0.70-1.30) H 02/05/22 09:55 02/05/22 Estimated GFR/1.73 m2 50.55 (mL/min/1.73m2) 02/05/22 09:55 02/05/22 Calcium Level 9.0 mg/dL (8.5-10.1) 02/05/22 09:55 02/05/22 Glucose Level 153 mg/dL (74-106) H 02/05/22 09:55 02/05/22 Liver Function Panel: No Data to Display Coagulation Panel: No Data to Display Cardiac Panel: No Data to Display Arterial Blood Gas: No Data to Display Venous Blood Gas: No Data to Display Pancreas Panel: No Data to Display Thyroid Panel: No Data to Display Infectious Disease: Coronavirus (COVID-19)(PCR) Negative (Negative) 02/05/22 10:00 02/05/22 Coronavirus 2019 Source Nasal/Nares 02/05/22 10:00 02/05/22 Blood Cultures: No Data to Display Toxicology Panel: No Data to Display Anesthesia Assessment and Plan Anesthesia History Personal History: PONV (scop patch works well. ) Family History: No Family History of Anesthesia Complications Exercise Tolerance Exercise Tolerance: Metabolic Equivalents>4 Cardiac & Pulmonary Exam Cardiac Exam: Normal S1/S2 Heart Sounds Pulmonary Exam: Clear Bilateral Breath Sounds Implantable Cardiac Device Does patient have a Pacemaker or an ICD?: No Airway Exam Known Difficult Airway: No Mallampati Class: 3 Mouth Opening: Normal (> 3cm) Thyromental Distance: Greater than 3 cm Neck Range of Motion: Full ROM Neck Circumference: Thick Teeth Condition: Normal Dentition ASA Classification ASA Score: ASA 2 Emergency Case?: No NPO Status NPO Status: NPO Clears >2 hours, Solids >8 hours Anesthesia Plan Resuscitation Status: Full Code Anesthesia Technique: Spinal Anesthesia Airway Planned: Natural Airway Pain Management: Surgeon and patient request nerve block Monitors Used: Standard Monitors Preoperative Comments:: 65 yo male for left TKA. Sig PMHx: HTN (amlodipine, lisinopril, metoprolol), BPH (alfuzosin), right radial artery occlusion, PONV. Plan: spinal, ACB, +/-scopolamine. Previous anes: 3 attempt spinal, ended up with longer needle. seems very nervous about the procedure, as the last spinal was challenging and was uncomfortable for him. we discussed that the plan of GA vs spinal is 100% his decision. He is still amenable to the spinal and the ACB again. However he is aware that he can change his mind at any point to be a GA if he so chooses.
[2022-02-07] VITALS (10 sets, daily range): BP systolic 98–153; BP diastolic 57–81; PULSE 53–68; RESP 16–20; TEMP 36.3–37.1; O2SAT 93–97; BMI 37.5
--- NOTE | 2022-02-07 07:20 | DSE_ITS ---
Documented by User: Apoorva Burt 02/07/22 09:42 DS: Diagnosis Discharge Diagnosis (1) Left knee DJD: Status: Acute Discharge Plan Disposition Patient Disposition: HOME Condition: Good Discharge Details Reason For Visit: Left knee DJD Attending Provider: Esau Dong Primary Care Provider: Gagandeep Demarco Home Meds and New Rx's Prescriptions: New celecoxib [Celebrex] 200 mg capsule 200 mg PO BID Qty: 30 0RF aspirin 81 mg tablet,delayed release (DR/EC) 81 mg PO BID 30 Days Qty: 60 0RF acetaminophen 500 mg tablet 1,000 mg PO Q8H PRN Qty: 90 0RF Rx Instructions: Take two tablets up to every 8 hours as needed for pain pantoprazole 40 mg tablet,delayed release (DR/EC) 40 mg PO DAILY 30 Days Qty: 30 0RF docusate sodium [Colace] 100 mg capsule 100 mg PO BID Qty: 30 0RF gabapentin 300 mg capsule 300 mg PO QHS Qty: 14 0RF Rx Instructions: Take one tablet at bedtime Continued ascorbic acid (vitamin C) 1,000 mg tablet 1 g PO DAILY 0RF omega 5-fqb-ylv-fish oil [Fish Oil] 1,200 (144-216) mg capsule 1 cap PO DAILY 0RF amlodipine 10 mg tablet 10 mg PO DAILY 0RF lisinopril 40 mg tablet 40 mg PO DAILY 0RF metoprolol tartrate 25 mg tablet 12.5 mg PO BID 0RF finasteride 5 mg tablet 5 mg PO DAILY 0RF diphenhydramine HCl [Benadryl] 25 mg capsule 25 mg PO QHS 0RF alfuzosin 10 mg tablet extended release 24 hr 10 mg PO HS 0RF Rx Instructions: administer after the same meal each day hydrochlorothiazide 12.5 mg tablet 12.5 mg PO DAILY 0RF Discontinued aspirin [Adult Aspirin Regimen] 81 mg tablet,delayed release (DR/EC) 81 mg PO DAILY 0RF acetaminophen 500 mg tablet 1,000 mg PO Q8H PRN (Reason: pain) Qty: 90 3RF No Action oxycodone 5 mg tablet 5 mg PO Q6H MDD 20mg PRN (Reason: severe post-operative pain) Qty: 16 0RF Rx Instructions: Take one tablet up to every 6 hours as needed for severe pain aspirin 81 mg Tablet 81 mg PO DAILY 0RF Discharge Instructions Additional Instructions: Total Knee Discharge Instructions Activity: The most important activity is to walk. You should try to take short walks a few times a day. It is important that when resting you work on keeping the knee straight. Avoid putting a pillow behind the knee as this will encourage flexion. Work on range of motion exercises as provided by Physical Therapy. If you have the [employer] bike coming, this will be your primary tool for exercise after the knee replacement. You should use it and follow the directions for the knee. Utilize the other exercises sparingly based on your symptoms. - Start outpatient physical therapy within 2 weeks. - You should wear the MAO hose on both legs for 2 weeks. You may remove these at night. You may also use any compression sock in place of the MAO hose. - Utilize [employer] to review exercises, see videos on exercises and obtain basic information pertaining to your surgery and your recovery. Dressing: Remove the Spike wrap by 2 days after your surgery and put on the MAO stocking given to you from the hospital. Keep the surgical dressing (underneath the SPIKE wrap) in place for at least one week. After the first week it may be removed and replaced with light gauze and tape or nothing. The wound and dressing may get wet after 3 days but avoid soaking the dressing or otherwise it will need to be changed. Many people prefer covering the dressing with cling wrap (saran wrap) to minimize it from getting soaked. If it gets wet, just pat dry. If it starts to peel off then it will need to be changed. Medications: - You should take Tylenol and anti-inflammatory Celebrex as your primary pain control medications. If the Celebrex is too expensive or not covered, please call the office for another alternative (Advil/Ibuprofen or Naproxen/Aleve) - You have been prescribed a stronger pain medication Oxycodone for breakthrough pain, take as needed as prescribed. - You have also been prescribed a stomach acid reduction agent Pantoprozole to help reduce stomach acid and reflux. - You have been prescribed Gabapentin to take at night for restlessness and nerve pain. - You will be taking Aspirin 81mg twice a day for DVT prevention unless instructed otherwise. - If you have constipation you should take Colace (which has been precribed) or Miralax (which you may purchase [id number]). It takes most people 3-4 days to have a bowel movement. Follow-up: 2 weeks If you have any acute concerns or questions, please do not hesitate to contact the office at [phone]. You may contact Dr. Dong with any questions after hours through the hospital at [phone] or on his cell phone at [phone]. Stand Alone Forms: Anesthesia Discharge Inst., Maria Teresas.Nerve Block Instructions, Toya Penn ([facility]) Referrals: Esau Dong MD [ [facility] STAFF PHYSICIAN] - Equipment/Supplies: Walker Activity:: Elevate Remove Dressings/Wound Care:: Do Not Remove Shower/Bathe:: Cover Diet:: As Tolerated Discharge Orders Discharge Orders: Discharge Order (Routine); Ordered 02/07/22 Ordered By: Esau Dong Discharge Data Discharge Date/Time-TO BE ENTERED AT DEPARTURE: 02/07/22 16:11 DS: Data Vitals/I&O Vitals and I&O: Intake & Output 02/06/22 02/06/22 02/07/22 11:59 23:59 11:59 Weight 118.841 kg PFSH All Active Problems Left knee DJD (Acute) BPH loc w urin obs/LUTS (Acute) HELENA (obstructive sleep apnea) (Chronic) Enlarged prostate (Acute) Hypertension (Chronic) Medical History Kidney stones PONV (postoperative nausea and vomiting) pt. 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) Hydrocele Rupture of right distal biceps tendon Status post arthroscopy of left knee x2 Repaired MCL Status post left inguinal hernia repair Umbilical hernia Social History Smoking/Tobacco Use Status: Former Tobacco Use Quit Date: 12/02/91 Pack-years: 30 Smoking risk assessment performed?: Yes Alcohol Intake: former Year quit: 1991 Drug use: Never Substance use type: does not use current occupation: retired - machinest at [employer] Current gender identity: male Do you feel safe at home: Yes Do you feel safe in your relationship?: Yes Documented by User: Esau Dong MD 02/18/22 22:02 DS: Diagnosis Discharge Diagnosis (1) Left knee DJD: Status: Acute Discharge Plan Disposition Patient Disposition: HOME Condition: Good Discharge Details Reason For Visit: Left knee DJD Attending Provider: Esau Dong Primary Care Provider: Gagandeep Demarco Home Meds and New Rx's Prescriptions: New celecoxib [Celebrex] 200 mg capsule 200 mg PO BID Qty: 30 0RF aspirin 81 mg tablet,delayed release (DR/EC) 81 mg PO BID 30 Days Qty: 60 0RF acetaminophen 500 mg tablet 1,000 mg PO Q8H PRN Qty: 90 0RF Rx Instructions: Take two tablets up to every 8 hours as needed for pain pantoprazole 40 mg tablet,delayed release (DR/EC) 40 mg PO DAILY 30 Days Qty: 30 0RF docusate sodium [Colace] 100 mg capsule 100 mg PO BID Qty: 30 0RF gabapentin 300 mg capsule 300 mg PO QHS Qty: 14 0RF Rx Instructions: Take one tablet at bedtime Continued ascorbic acid (vitamin C) 1,000 mg tablet 1 g PO DAILY 0RF omega 4-tfa-yhv-fish oil [Fish Oil] 1,200 (144-216) mg capsule 1 cap PO DAILY 0RF amlodipine 10 mg tablet 10 mg PO DAILY 0RF lisinopril 40 mg tablet 40 mg PO DAILY 0RF metoprolol tartrate 25 mg tablet 12.5 mg PO BID 0RF finasteride 5 mg tablet 5 mg PO DAILY 0RF diphenhydramine HCl [Benadryl] 25 mg capsule 25 mg PO QHS 0RF alfuzosin 10 mg tablet extended release 24 hr 10 mg PO HS 0RF Rx Instructions: administer after the same meal each day hydrochlorothiazide 12.5 mg tablet 12.5 mg PO DAILY 0RF Discontinued aspirin [Adult Aspirin Regimen] 81 mg tablet,delayed release (DR/EC) 81 mg PO DAILY 0RF acetaminophen 500 mg tablet 1,000 mg PO Q8H PRN (Reason: pain) Qty: 90 3RF No Action oxycodone 5 mg tablet 5 mg PO Q6H MDD 20mg PRN (Reason: severe post-operative pain) Qty: 16 0RF Rx Instructions: Take one tablet up to every 6 hours as needed for severe pain aspirin 81 mg Tablet 81 mg PO DAILY 0RF Discharge Instructions Additional Instructions: Total Knee Discharge Instructions Activity: The most important activity is to walk. You should try to take short walks a few times a day. It is important that when resting you work on keeping the knee straight. Avoid putting a pillow behind the knee as this will encourage flexion. Work on range of motion exercises as provided by Physical Therapy. If you have the [employer] bike coming, this will be your primary tool for exercise after the knee replacement. You should use it and follow the directions for the knee. Utilize the other exercises sparingly based on your symptoms. - Start outpatient physical therapy within 2 weeks. - You should wear the MAO hose on both legs for 2 weeks. You may remove these at night. You may also use any compression sock in place of the MAO hose. - Utilize [employer] to review exercises, see videos on exercises and obtain basic information pertaining to your surgery and your recovery. Dressing: Remove the Spike wrap by 2 days after your surgery and put on the MAO stocking given to you from the hospital. Keep the surgical dressing (underneath the SPIKE wrap) in place for at least one week. After the first week it may be removed and replaced with light gauze and tape or nothing. The wound and dressing may get wet after 3 days but avoid soaking the dressing or otherwise it will need to be changed. Many people prefer covering the dressing with cling w rap (saran wrap) to minimize it from getting soaked. If it gets wet, just pat dry. If it starts to peel off then it will need to be changed. Medications: - You should take Tylenol and anti-inflammatory Celebrex as your primary pain control medications. If the Celebrex is too expensive or not covered, please call the office for another alternative (Advil/Ibuprofen or Naproxen/Aleve) - You have been prescribed a stronger pain medication Oxycodone for breakthrough pain, take as needed as prescribed. - You have also been prescribed a stomach acid reduction agent Pantoprozole to help reduce stomach acid and reflux. - You have been prescribed Gabapentin to take at night for restlessness and nerve pain. - You will be taking Aspirin 81mg twice a day for DVT prevention unless instructed otherwise. - If you have constipation you should take Colace (which has been precribed) or Miralax (which you may purchase [id number]). It takes most people 3-4 days to have a bowel movement. Follow-up: 2 weeks If you have any acute concerns or questions, please do not hesitate to contact the office at [phone]. You may contact Dr. Dong with any questions after hours through the hospital at [phone] or on his cell phone at [phone]. Stand Alone Forms: Anesthesia Discharge Inst., Anes.Nerve Block Instructions, Toya Penn ([facility]) Referrals: Esau Dong MD [ [facility] STAFF PHYSICIAN] - Equipment/Supplies: Walker Activity:: Elevate Remove Dressings/Wound Care:: Do Not Remove Shower/Bathe:: Cover Diet:: As Tolerated Discharge Orders Discharge Orders: Discharge Order (Routine); Ordered 02/07/22 Ordered By: Esau Dong Discharge Data Discharge Date/Time-TO BE ENTERED AT DEPARTURE: 02/07/22 16:11 DS: Summary Time Spent with Patient providing and/or coordinating discharge services: Less than 30 minutes Status at Discharge Functional status at discharge: uses cane/walker Overall status at discharge: patient is progressing back to baseline Mental Status: mental status grossly normal Speech and Movement: speech and movement normal Mood: congruent mood Affect: normal affect Exam Psych Mental Status: mental status grossly normal Speech and Movement: speech and movement normal Mood: congruent mood Affect: normal affect PFSH All Active Problems Left knee DJD (Acute) BPH loc w urin obs/LUTS (Acute) HELENA (obstructive sleep apnea) (Chronic) Enlarged prostate (Acute) Hypertension (Chronic) Medical History Kidney stones PONV (postoperative nausea and vomiting) pt. 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
[2022-02-07] MEDS: Scopolamine 1 MG/3 DAYS PATCH TD (08:17)
[2022-02-07] MEDS: Celecoxib 200 MG CAP 400 MG PO (08:18)
[2022-02-07] MEDS: Gabapentin 300 MG CAP PO (08:18)
[2022-02-07] MEDS: Acetaminophen 500 MG TAB 1000 MG PO (08:19)
[2022-02-07] MEDS: Lactated Ringers 1,000 ML 80 ML IV (08:41)
--- NOTE | 2022-02-07 10:03 | W.ANESNERVE ---
Nerve Block Single Injection Procedure Date and Time Date Performed: 02/07/22 Procedure Start: 09:39 Location Where Procedure Performed Procedure Location: Day Surgery Unit Reason Performed: Postoperative Analgesia Requesting Provider: Esau Dong Timeout Performed Timeout Performed: Yes Monitoring Used ECG, Blood Pressure and SpO2 Sterility Sterility: Hand Hygiene, Surgical Cap, Surgical Mask, Sterile Gloves, Eye Protection and Chlorhexidine Sedation Given During Procedure Sedation Given (Indicate Dose Given): Versed IV Dose:: 2 mg Patient Mental Status Patient Mental Status: Sedate with meaningful communication Nerve Block 1st Nerve Block: Laterality: Left Block Type: Adductor Canal Needle / Catheter Used: 100mm SonoPlex II Local Anesthetic Bolus (Indicate Dose Given): Lidocaine used for local infiltration of skin, Injected in 3-5ml increments after negative blood aspiration and Bupivacaine 0.375% Dose:: 10 ml Additives (Indicate Dose Given): None Ultrasound: Sterile probe cover and gel used Ultrasound Image Saved?: Yes Nerve Stimulator: Not Used Paresthesia: None Procedure Tolerated: No Complications Procedure Outcome: Successful Performed By: Deni Alberto
[2022-02-07] MEDS: ceFAZolin 3,000 MG in Normal Saline 100 ML 200 MG IVPB (10:34)
[2022-02-07] MEDS: niCARdipine 25 MG/10 ML VIAL IV (10:50)
[2022-02-07] MEDS: Bupivacaine 0.25% Pres-Free 30 ML VIAL (10:56)
[2022-02-07] MEDS: Ketorolac 30 MG/ML VIAL (10:56)
[2022-02-07] MEDS: Normal Saline 20 ML VIAL (10:57)
--- NOTE | 2022-02-07 12:24 | ROE_ITS ---
Date of service: 02/07/22 Time of Service: 12:00 Operative Note Operative Note DATE OF PROCEDURE: 02/07/22 PRE-OP DIAGNOSIS: Left Knee Osteoarthritis POST-OP DIAGNOSIS: same PROCEDURE: Left Total Knee Replacement SURGEON: Esau Dong MRI SPECIAL PROCEDURES TECHNOLOGIST: Apoorva Burt Refer to Anesthesia Record ESTIMATED BLOOD LOSS: 400 PATHOLOGY: none sent TOURNIQUET TIME: 0 COMPLICATIONS: None Patient was transported to: PACU Patient's condition: stable Implants: 1. Depuy Attune Cementless Cruciate Retaining Femoral Component, Size 8 2. Depuy Attune Cementless Rotating Platform Tibial Component, Size 7 3. Depuy Attune 8x8 CR/RP Poly 4. Depuy Attune Patellar Component, Size 38 Indications: I have seen George in clinic for symptoms of knee arthritis, confirmed with radiographic findings. George has exhausted nonoperative methods and was having significant limitations in daily function and desired better function and less pain. I discussed the technical details of a knee replacement. I explained the risks of the procedure to include, but not limited to, bleeding, infection, pain , stiffness, fracture, damage to nerves and vessels, damage to muscles and tendons, loosening, need for repeat procedure, blood clot and cardiopulmonary demise. Despite these risks, he elected to proceed. Findings: There was significant signs of arthritis throughout the knee with large osteophytes throughout. Procedure Description: George was greeted in the preoperative holding area where the correct side was identified and marked. The consent was reviewed with the patient and signed. The history and physical was updated. All questions were answered. Preoperative medications were administered: Acetaminophen 1000mg, Celebrex 400mg, and Gabapentin 300mg. An adductor canal block was then administered by the anesthesia team in the PACU. George was taken back to the operating room. A spinal anesthestic was then attempted but was unsuccessful so a general anesthetic was administered. T he patient was placed into the supine position on the operating room table. A nonsterile tourniquet was placed high onto the leg but only used for cementing. Posts were placed for positioning during the procedure. All bony prominences were well padded. Prophylactic antibiotics in the form of Cefazolin were administered. 1g of Tranxemic Acid was given intravenously within 30 minutes of incision. The left leg was then prepped with Chloraprep and draped in a standard fashion with impervious stockinette. A second prep with Chloraprep was performed prior to application of Iodine impregnated skin protection. A timeout to confirm correct identity, side and site, procedure, allergies, anesthesia, and medical concerns was performed. With the knee in some flexion, a midline incision was made overlying the knee. Full thickness skin flaps were raised once the extensor mechanism was encountered. These were raised medially and laterally. Any bleeding was controlled with electrocautery. Once the extensor mechanism was fully exposed, a medial parapatellar arthrotomy was performed in a flexed position. All bleeding from the arthrotomy and the geniculate arteries was coagulated. A medial subperiosteal peel was performed with electrocautery to the midcoronal plane. Due to the significant varus deformity the entire medial tibial plateau was exposed. The fat pad was removed while keeping the patellar tendon protected. The anterior distal femur synovium was removed for later visualization. The ACL and PCL were resected and the anterior horn of the lateral meniscus was transected. The knee was then flexed with the patella everted. Large osteophytes from the tibia were removed. Large osteophytes from the femur were removed. Using a step drill, and based on preoperative templating, the femoral canal was entered. This was done with a step drill without any difficulty. The intramedullary distal femoral cut guide was inserted, set to a 4 degree valgus cut and 9mm cut thickness. There was some hypoplasia of the lateral femoral condyle and any remnant cartilage of the medial femoral condyle was removed for appropriate thickness. The distal femoral cut guide was then held in position and pinned. With the soft tissues protected, the distal cut was performed. This was passed over a few times to ensure a planar cut. I then turned attention to the tibia. The extramedullary guide was placed onto the leg. The distal aspect was slid medial to adjust for position of center of ankle and stay in line with shaft of the tibia. Approximately 3-5 degrees of posterior slope was kept in the proximal cutting guide. The center of the guide was aligned with the PCL. The stylus was used to assess cut thickness. The medial side, most involved side, was set for a 2mm cut. This was then held in position and pinned into place with 2 additional pins and a cross pin for stability. The medial and lateral collateral ligaments were protected and the cut was performed. With this completed, it was assessed and noted to be of appropriate dimensions. The guide was removed. A spacer block was inserted and the knee was brought into extension. The 6mm spacer block provided full extension, without hyperextension and with stability of both the medial and lateral collateral ligaments was assessed. The pins from the femur and the tibia were then removed. The distal femur was then sized. The anterior stylus was placed onto the lateral ridge of the anterior femur. This indicated a size 8 femur. The external rotation of the guide was adjusted to 3 degrees to match the epicondylar axis, perpendicular to Kidder?s line. The 4-in-1 cutting guide was the placed. The posterior medial femur cut was evaluated and appeared of good thickness. The spacer block was inserted underneath the cutting guide and stability was confirmed in 90 degrees of flexion. An khoa wing was used to confirm appropriate position of the anterior cut to avoid notching. This cutting guide was ensured to be flush on the cut surface and then pinned into place with headed pins. While protecting the soft tissues, quad tendon, and collateral ligaments, the anterior and posterior cuts were performed with a saw. The central two pins were removed and the posterior and anterior chamfers were cut next. The notch-cutting guide was placed. This was pinned to lateralize the femoral component as much as possible while keeping it flush on the cut surface. This was then pinned into position. A reciprocating saw was used to make the notch cut. A rasp smoothed the cut surfaces. The medial and lateral menisci were removed. A trial femoral component was then inserted, impacted down to the cut surfaces, and the lug holes were drilled. A provisional trial tibial component was placed and the knee was brought through range of motion. There was noted to be excellent extension and flexion. There was no significant instability. The patella was tracking without thumbs. A size 8mm polyethylene component provided the best range of motion and stability with less than 2mm gapping with medial and lateral stress and full extension without significant hyperextension. The tibial cut surface was fully exposed. The tibia was then sized as a 7. The tibia had been previously marked during trialing to correspond to the center of the tibial component to help with rotation. The trial was aligned to this nasir, approximately rotated to the medial 1/3rd of the tibial tubercle. The trial was pinned into place. The tibia was prepared with a reamer and a keel punch and lug holes. The knee was then brought into extension and the patella was measured as 28mm. Using the patellar clamp and cut guide, this was resected to a flat surface with at least 13mm of thickness remaining. The size 38 patella fit the best. This was oriented and then clamped into position. The lugs were drilled. The trial components were removed. The final components were opened on the back table. The periosteal and capsular tissues, especially posteriorly, around the knee were then systematically injected with a periarticular cocktail consisting of 50cc 0.25% Marcaine, 30mg Ketorolac, 20cc of Exparal and 50cc of injectable saline. The knee was thoroughly irrigated with a pulse lavage and dried. Irrisept was also used to irrigate the tissues. On the back table, with the implants opened, the cement was mixed. One batch of high viscosity cement was prepared with vacuum assistance. After the cement was ready a small amount was placed on the cut surface of the patella and the patellar button was clamped into position and held. While the cement was hardening, the cementless knee components were placed. Starting with the tibial component, the tibia was subluxed anteriorly and the lug holes of the component were lined up. The tibia was then impacted with an impactor and mallet until the tibial component was in contact with the tibia. The final polyethylene component was inserted. Then, the femoral component was inserted. The lug holes were aligned and the component was impacted into position. The knee was irrigated with Surgiphor Betadine solution. This was allowed to sit in the knee for 3 minutes and after it was irrigated out with salline. After the cement had finally cured, approximately 15min, the clamp was removed from the patella and the knee was taken through range of motion. The patella was tracking with a no-thumbs technique. The capsule was then reapproximated with a No. 1 Vicryl at multiple locations. The capsule was finally closed with a No. 2 Stratafix, barbed suture. The second dosing of 1g TXA was started. Deep tissues were then reapproximated with 0 Vicryl and 2-0 Vicryl. The skin was closed with a running 3-0 Monocryl in a subcuticular fashion. This was reinforced with skin glue. A Mepilex silver dressing was applied along with a [id number] JAY JAY wrap. A CryoCuff was applied. George was transferred to the hospital bed without difficulty an suffering no apparent complication. George has a good prognosis. Physical therapy will start today and without restrictions, weight-bearing as tolerated. Aspirin 81mg BID will be used for DVT prophylaxis.
[2022-02-07] MEDS: oxyCODONE 5 MG TAB PO (14:02)
--- NOTE | 2022-02-07 14:37 | W.ANESPOSTOP ---
Postoperative Evaluation Date, Time and Location Date Performed: 02/07/22 Time Performed: 14:37 Patient Location: Day Surgery Unit Vital Signs Most Recent Imported Vital Signs: Most Recent Vital Signs Temp Pulse Resp BP Pulse Ox 36.6 C 58 L 20 118/57 L 96 02/07/22 14:10 02/07/22 14:10 02/07/22 14:10 02/07/22 14:10 02/07/22 14:10 Pain Score Most Recent Pain Score: Most Recent Pain Score Pain Level 4 02/07/22 14:10 Assessment Mental Status: Awake (Alert & Oriented to Patient Baseline) Airway and Respiratory Function: Patent airway with normal (patient baseline) respiratory exam Cardiovascular Function: Hemodynamically Stable Hydration Status: Adequately Hydrated Nausea & Vomiting: No Nausea or Vomiting Pain: Pain is tolerable per patient Peripheral Nerve Block: Regional nerve block not resolved at time of post operative discharge
--- NOTE | 2022-02-07 14:45 | IN_ITS ---
Date of service: 02/07/22 Time of Service: 14:45 PT Notes Visit Reasons: Left knee DJD Physical Therapy Day Surgery Initial Evaluation Date: 02/07/2022 Referring Doctor: BULL Chakraborty PT Orders: PT CONSULT: Status post Ortho surgery.? Status post left TKA. Precautions: WBAT on left LE with AD. Patient Profile/Admitting Diagnosis: George is a 66-year-old male with primary osteoarthritis of the leftknee and is status post left total knee arthroplasty on postoperative day 0. PMHX: Medical History?(Updated 01/29/22 @ 13:12 by Apoorva Burt) Kidney stones PONV (postoperative nausea and vomiting) pt. states he does well with a scopolamie patch Surgical History?(Updated 01/29/22 @ 13:11 by Apoorva Burt) History of exploratory laparotomy History of total right knee replacement (09/12/21) Hydrocele Rupture of right distal biceps tendon Status post arthroscopy of left knee x2 Repaired MCLStatus post left inguinal hernia repair Umbilical hernia Social History/Home Situation: Lives with in a private home with a ramp to enter and a 1 step up onto entrance door.? Has a flight of steps to the upstairs where his bathroom his has set up the need for so that he can manage well for the first few days.? No falls in the past 12 months.? Independent with all mobility ADL performance prior to surgery. Equipment Owned/DME: [facility] Subjective: Could not wait too long to get out of bed and go home. Objective: General Observation: JAY JAY wraps to L knee. Cryocuff to L knee. TEDS on R leg. In NAD. Mental Status: Alert and oriented x4 Pain: 1/10 in the right thigh and knee ROM: Right Lower Extremity: Hip flexion WFL. Hip abduction WFL. Knee flexion WFL. Ankle dorsiflexion WFL. Ankle plantarflexion WFL. Left Lower Extremity: Hip flexion WFL. Hip abduction WFL. Knee flexion about 5 to 100.? Knee extension -5 degrees.? Ankle dorsiflexion WFL. Ankle plantarflexion WFL. Strength: Right Lower Extremity: Hip flexors 5/5. Hip abductors 5/5. Knee flexors 5/5. Knee extensors 5/5. Ankle dorsiflexors 5/5. Ankle plantarflexors 5/5. Left Lower Extremity:Hip flexors 5/5. Hip abductors 5/5. Knee flexors 3-/5. Knee extensors 3-/5. Ankle dorsiflexors 5/5. Ankle plantarflexors 5/5. Sensation: Intact as to pain and light pressure in B LE Bed Mobility/Transfers: Supine to sit supervision Sit to stand contact-guard assist Stand to sit standby assist Bed to chair standby assist Gait: Instructed patient on level surface ambulation 100 feet using front wheel walker with step through pattern requiring only standby assist.? Denies chest pain, headache, and dizziness throughout activity.? Stairs: Negotiated 6 x 4 inch steps and 4 x 6 inch steps while holding onto 1 rail using step to gait pattern requiring standby assist. Balance: Static Sitting: Normal Dynamic Sitting: Normal Static Standing: Fair Dynamic Standing: Fair Special Tests: Mobility Limitations Standardized Measure [facility] AM-PAC 6 clicks Basic Mobility Inpatient Short Form: Raw Score: 24 ?CMS Score: 0% deficit Informed Consent/Education:? Patient instructed in purpose of PT consult.? Education and training on initial set of exercises that can be done at home have been completed with patient. Reinforced use of Remind mikayla at home. Assessment: George requires the use of a front-wheeled walker to maximize independence and reduce fall risk at home. Patient presents with clinical signs and symptoms consistent with current/admitting diagnoses that have resulted to mobility limitations, gait instability, generalized weakness, and impairment of motor control as demonstrated by the following impairment level findings: 1.? Decreased strength to left knee major muscle groups 2.? Impaired standing balance 3.? Limitation of joint range of motion in left knee Impairments are contributing to the following functional limitations: 1.? Inability to safely ambulate without assistive device 2.? Increase completion time for mobility ADL performance 3.? Increased fall risk Patient is assessed as a 41505 moderate complexity based on the following: History: 65-year-old male with impairment level findings, functional limitations, and past medical history as indicated above Examination: Demonstrable impairment in strength, balance, and mobility level with underlying impairments and functional limitations as documented above Presentation: Evolving Decision Makin moderate complexity Goals: N/A.? PT evaluation and 1-2 treatment sessions only for functional mobility training using recommended AD and for HEP instruction. Plan of Care/Treatment Plan: N/A.? PT evaluation and 1-2 treatment session only for functional mobility training using recommended AD and for HEP instruction. DISCHARGE RECOMMENDATIONS: Home when medically cleared by orthopedic surgeon.? Outpatient PT services to fa cilitate return to premorbid independent level and to unassisted community ambulation. TREATMENT CODE/TIME: 49633 x 20 minutes, 94118 x 15 minutes beginning at 14:45 PM. Thank you for the opportunity to participate in the care of this patient. Emerita Donnelly PT, DPT, CLT [facility] [place], [place]
== END 2022-02-07 16:11 | disposition home or self-care (01) ==
LOC: SUR 07:38
PROVIDERS: PCP Family Medicine; Visit Provider Student in an Organized Health Care Education/Training Program
PROC: (CPT 27447; principal; 2022-02-07 10:00)
DX: M17.12 Unilateral primary osteoarthritis, left knee (principal); I10 Essential (primary) hypertension; N40.1 Benign prostatic hyperplasia with lower urinary tract symptoms; G47.33 Obstructive sleep apnea (adult) (pediatric)
CPT/HCPCS: 27447; 76942; 97163; 97530; A4600; J0690; J1100; J1885; J2001; J2250; J2405; J3490

== ENCOUNTER 2022-02-22 12:05 | Outpatient (CLI) | payer MEDICARE, SELFPAY ==
--- NOTE | 2022-02-22 08:45 | DI.RAD_ITS ---
Exam(s) XR KNEE LT 1V EXAM: XR KNEE LT 1V CLINICAL HISTORY: 1st post op L TKA. TECHNIQUE: 2D digital imaging was performed of the left knee. One images were obtained. Lateral v iews were obtained. COMPARISON: CR XR KNEE RT 1V from 09/25/2021 CR XR STANDING ALIGNMENT from 02/22/2022 FINDINGS: BONES: No acute fracture is present. No bony destructive lesion is seen. JOINTS: The patient has a left total knee replacement. The orthopedic hardware appears in good posit ion. No joint effusion is seen. SOFT TISSUE: Normal. IMPRESSION: Status post left TKR. DATA REPOSITORY: RADIATION DOSE DELIVERED:
--- NOTE | 2022-02-22 08:45 | DI.RAD_ITS ---
Exam(s) XR STANDING ALIGNMENT EXAM: XR STANDING ALIGNMENT CLINICAL HISTORY: 1ST POST OP L TKA. TECHNIQUE: 2D digital imaging was performed. Four images were obtained. COMPARISON: CR XR STANDING ALIGNMENT from 09/25/2021 FINDINGS: BONES: No acute fracture is present. No bony destructive lesion is seen. The patient is now status po st bilateral total knee replacements. There is no significant leg length discrepancy. SOFT TISSUE: Normal. IMPRESSION: Bilateral total knee replacements. DATA REPOSITORY: RADIATION DOSE DELIVERED:
== END 2022-02-22 12:06 | disposition home or self-care (01) ==
LOC: DIORS 12:05
PROVIDERS: PCP Family Medicine; Referring Provider Family Medicine; Visit Provider Physician Assistant
DX: Z96.653 Presence of artificial knee joint, bilateral (principal); Z47.1 Aftercare following joint replacement surgery
CPT/HCPCS: 73560; 77073

== ENCOUNTER → 2022-03-22 10:20 | Outpatient (BNVA) | payer MEDICARE, SELFPAY | PROVIDERS: PCP Family Medicine; Referring Provider Family Medicine; Visit Provider Student in an Organized Health Care Education/Training Program | DX: Z47.1 Aftercare following joint replacement surgery (principal); Z96.652 Presence of left artificial knee joint ==

== ENCOUNTER → 2022-05-07 13:00 | Outpatient (BNVA) | payer MEDICARE, SELFPAY | PROVIDERS: PCP Family Medicine; Referring Provider Family Medicine; Visit Provider Student in an Organized Health Care Education/Training Program | DX: Z47.1 Aftercare following joint replacement surgery (principal); Z96.652 Presence of left artificial knee joint ==

== ENCOUNTER 2022-09-13 13:42 | Outpatient (CLI) | payer MEDICARE, SELFPAY ==
--- NOTE | 2022-09-13 10:22 | DI.RAD_ITS ---
Exam(s) XR KNEE RT 2V AP,LAT EXAM: XR KNEE RT 2V AP,LAT CLINICAL HISTORY: yearly. TECHNIQUE: 2D digital imaging was performed of the right knee. Two views obtained. AP and lateral views were obtained. COMPARISON: CR XR KNEE RT 3V AP,LAT,TITO from 03/10/2021 CR XR KNEE RT 1V from 09/25/2021 CR XR STANDING ALIGNMENT from 09/25/2021 FINDINGS: BONES: No acute fracture is present. No bony destructive lesion is seen. JOINTS: There are stable postsurgical changes of a right total knee replacement. No evidence of hard murillo failure is seen. No joint effusion is seen. SOFT TISSUE: Atherosclerosis is present. IMPRESSION: Stable right TKA. DATA REPOSITORY: RADIATION DOSE DELIVERED:
== END 2022-09-13 13:43 | disposition home or self-care (01) ==
LOC: DIORS 13:42
PROVIDERS: PCP Family Medicine; Referring Provider Family Medicine; Visit Provider Physician Assistant
DX: Z96.651 Presence of right artificial knee joint
CPT/HCPCS: 99214; 73560

== ENCOUNTER 2023-02-21 11:42 | Outpatient (CLI) | payer MEDICARE, SELFPAY ==
--- NOTE | 2023-02-21 10:15 | DI.RAD_ITS ---
Exam(s) XR KNEE RT 2V AP,LAT EXAM: XR KNEE RT 2V AP,LAT CLINICAL HISTORY: R painful TKR. TECHNIQUE: 2D digital imaging was performed. Two images were obtained. AP and lateral views were ob tained. COMPARISON: CR XR KNEE RT 2V AP,LAT from 09/13/2022 FINDINGS: BONES: There are stable post operative changes present. No fracture or dislocation. JOINTS: The orthopedic hardware is in good position. No evidence of hardware loosening. SOFT TISSUE: Atherosclerosis. IMPRESSION: Stable postoperative changes. DATA REPOSITORY: RADIATION DOSE DELIVERED:
--- NOTE | 2023-02-21 10:15 | DI.RAD_ITS ---
Exam(s) XR KNEE LT 2V AP,LAT EXAM: XR KNEE LT 2V AP,LAT CLINICAL HISTORY: ANNUAL F/U L TKA. TECHNIQUE: 2D digital imaging was performed. Two images were obtained. AP and lateral views were ob tained. COMPARISON: CR XR KNEE RT 2V AP,LAT from 09/13/2022 FINDINGS: BONES: There are stable post operative changes present. No fracture or dislocation. JOINTS: The orthopedic hardware is in good position. No evidence of hardware loosening. SOFT TISSUE: Atherosclerosis. IMPRESSION: Stable postoperative changes. DATA REPOSITORY: RADIATION DOSE DELIVERED:
== END 2023-02-21 11:43 | disposition home or self-care (01) ==
LOC: DIORS 11:42
PROVIDERS: PCP Family Medicine; Referring Provider Family Medicine; Visit Provider Student in an Organized Health Care Education/Training Program
DX: Z96.652 Presence of left artificial knee joint (principal); Z96.651 Presence of right artificial knee joint; Z47.1 Aftercare following joint replacement surgery
CPT/HCPCS: 99213; 73560

== ENCOUNTER 2024-02-21 10:00 | Outpatient (CLI) | payer MEDICARE, SELFPAY ==
--- NOTE | 2024-02-21 08:30 | DI.RAD_ITS ---
Exam(s) XR KNEE LT 2V AP,LAT EXAM: XR KNEE LT 2V AP,LAT CLINICAL HISTORY: ANNUAL F/U L TKA. TECHNIQUE: 2D digital imaging was performed. COMPARISON: CR XR KNEE LT 2V AP,LAT from 02/21/2023 FINDINGS: Two views. Position alignment of the components of the prosthesis remain stable. No obvious fracture or looseni ng. 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 Also a few in the posterior aspect of the joint space. IMPRESSION: Stable satisfactory appearance of the prosthesis. Soft tissue calcifications posteriorly as discusse d above. DATA REPOSITORY: RADIATION DOSE DELIVERED:
== END 2024-02-21 10:01 | disposition home or self-care (01) ==
LOC: DIORS 02-24 16:00
PROVIDERS: PCP Family Medicine; Visit Provider Physician Assistant
DX: Z47.1 Aftercare following joint replacement surgery (principal); Z96.652 Presence of left artificial knee joint
CPT/HCPCS: 99213; 73560

== ENCOUNTER 2024-03-04 15:41 | Outpatient (CLI) | payer MEDICARE, SELFPAY ==
--- NOTE | 2024-03-04 14:15 | DI.RAD_ITS ---
Exam(s) XR SHOULDER RT COMPLETE 2+V EXAM: XR SHOULDER RT COMPLETE 2+V CLINICAL HISTORY: RIGHT SHOULDER PAIN. TECHNIQUE: 2D digital imaging was performed of the right shoulder. Two images were obtained. Grash ey and axillary views were obtained. COMPARISON: No exams were available for comparison FINDINGS: BONES: No acute fracture is present. No bony destructive lesion is seen. JOINTS: No dislocation present. There is marked narrowing of the glenohumeral joint. There is an ost eophyte seen at the inferior humeral head. Mild degenerative changes are seen at the acromioclavicul ar joint. SOFT TISSUE: The visualized lungs are clear. IMPRESSION: Marked degenerative changes of the glenohumeral joint. DATA REPOSITORY: RADIATION DOSE DELIVERED:
== END 2024-03-04 15:42 | disposition home or self-care (01) ==
LOC: DIORS 15:41
PROVIDERS: PCP Family Medicine; Referring Provider Family Medicine; Visit Provider Student in an Organized Health Care Education/Training Program
DX: M19.011 Primary osteoarthritis, right shoulder
CPT/HCPCS: 99213; 73030